=== PATIENT | male | born 1980 | race Caucasian/White ===

== ENCOUNTER 2016-12-23 17:17 | Emergency (ER) | payer MEDICAID ==
[2016-12-23] MEDS ORDERED: Sodium Chloride 0.9% 10 ML Syringe FLUSH PRN (17:52)
[2016-12-23] MEDS ORDERED: Sodium Chloride 0.9% 1,000 ML IV ONE ×2 (17:55→18:41)
[2016-12-23] MEDS ORDERED: Ondansetron 8 MG in Sodium Chloride 0.9% 50 ML IV ONE (17:56)
[2016-12-23] MEDS ORDERED: Ketorolac 30 MG/ML SDV IVPUSH ONE (17:56)
[2016-12-23] MEDS ORDERED: Morphine 4 MG/ML Syringe IVPUSH ONE (18:20)
[2016-12-23] MEDS ORDERED: Acetaminophen 325 MG Tab PO ONE (19:41)
[2016-12-23] MEDS ORDERED: Ondansetron 4 MG/2 ML SDV IV ONE (19:41)
[2016-12-23] MEDS ORDERED: HYDROmorphone 1 MG/ML Syringe IVPUSH ONE (19:41)
[2016-12-23] MEDS ORDERED: Acetaminophen/HYDROcodone 325-10 MG Tab ONE (20:44)
[2016-12-23] MEDS ORDERED: Acetaminophen/HYDROcodone 325-10 MG Tab PO ONE (20:44)
[2016-12-23] MEDS ORDERED: Ondansetron 4 MG Tab.DIS ONE (20:44)
[2016-12-23] MEDS ORDERED: Ondansetron 4 MG Tab.DIS PO ONE (20:44)
[2016-12-23 21:00] VITALS: BP 127/78
--- NOTE | 2016-12-24 21:03 | ER ---
SUBJECTIVE: The patient is a 36-year-old male with known GERD, PUD, and stomach problems. He has had multiple EGDs, colonoscopies, evaluation by GI and follows his regular PCP on a regular basis, able to take his medicines and has been doing pretty well, but occasionally gets bouts and flare-ups where he has horrible nausea and vomiting, not able to keep anything down and has quite a bit of abdominal pain. He comes in to the emergency room today for the one of the same flare-ups. He denies any trauma. He is not sure if he is having just another flare or if he is having another acute issue besides this. He has a quite severe abdominal pain from upper to lower. He has had nonbloody nausea and vomiting. He feels dehydrated and weak and fatigued. He has been having the symptoms for about 2 days, he was hospitalized for the same thing a year ago. He has been taking his Protonix and Reglan. He denies syncope, near syncope, chest pain, or shortness of breath. Denies any recent assault or trauma. PAST MEDICAL HISTORY: Includes history of sinusitis, asthma, multiple bouts of gastritis, GERD, pancreatitis, history ulcers, he has had multiple colonoscopies, EGDs, and evaluation by GI. He was hospitalized because of gastric issues a year ago. Chronic back pain, anxiety, left ankle surgery, obesity, concussion, ADHD, and depression. CURRENT MEDICATIONS: Include: 1. Metoclopramide 10 mg p.o. t.i.d. p.r.n. 2. Elavil 10 mg p.o. at bedtime. 3. Flovent p.r.n. 4. Protonix 40 mg p.o. at bedtime. ALLERGIES: He is allergic to honey bees and sulfa antibiotics. Honey bees cause anaphylactic shock, and sulfa antibiotics cause blurred vision. SOCIAL HISTORY: He is here with his . He does use tobacco. He does use hashish and pot, he occasionally drinks alcohol. REVIEW OF SYSTEMS: Profound nausea, vomiting, abdominal pain, feels dehydrated. No headaches. No syncope. No chest pain or shortness of breath. No lower extremity pain. No melena or BRBPR. No diarrhea. No dysuria, but states he is not urinating very much. Please see HPI. OBJECTIVE: Vital Signs: Height is 1.73 meters, weight is 82 kg, his temperature is 37 degrees C, heart rate is 114, blood pressure is 134/92, respiratory rate 16, and oxygen is 100% on room air. General: It appears like he is probably normally in the usually good health, but he is very anxious at this point. Somewhat emotional HEENT: Normocephalic and atraumatic. He is walking back and forth to the bathroom. He is vomiting. He is anxious. He talks very rapidly. He has no respiratory distress. He wants treated immediately. He appears in obvious pain. Conjunctivae are clear. Oropharynx moist. No real dryness noted. Neck: Non-remarkable. Chest: Clear. Abdomen: Tender throughout with some guarding. No specific focal tenderness is more global. Back: Vague low back tenderness. No specific CVAT. Extremities: Non-remarkable. Skin: Mildly diaphoretic. LAB/STUDIES: White count was 10.5, hemoglobin and hematocrit were 19.4 and 54.7, likely showing his dehydration. Platelets were normal 342. PMNs showed elevation at 80.1. His urine was dark yellow and cloudy. He had 100 of protein, trace ketones, trace occult blood, negative nitrites, moderate bilirubin, negative leukocyte esterase, and many bacteria. His drug screen was positive for tricyclic antidepressants and positive for THC. His CMP showed normal electrolytes. His BUN and creatinine were elevated at 32 and 2.4, respectively. His glucose is 165. Calcium 10.3. Total bili was 1.3 and elevated. LFTs were all normal. Amylase was normal at 55. EMERGENCY ROOM COURSE: An IV was placed. He was given 2 L of IV fluids, he was given 30 mg of Toradol, 4 mg of morphine, and 4 mg of ondansetron initially and this was followed up for several other doses of ondansetron. He was later given a dose of hydromorphone. An abdominal pelvic CAT scan was performed, and it did not show any acute findings, no free air, no abscesses. All of this was discussed with the patient. He tolerated all his treatment very well, and by the end of his stay, he has felt markedly better improved and is ready to go home. ASSESSMENT: 1. Intractable nausea and vomiting, resolved with treatment. 2. Dehydration, resolved with rehydration. 3. Abdominal pain with history of same with acute gastric symptoms. CT at this time non-remarkable. 4. Acute renal failure secondary to dehydration. PLAN: Discharged to home with his in stable and improved condition. Rehydrated with 2 of fluid. He is given a prescription of Zofran as well as a prescription for hydrocodone. He is advised to stay with family to keep hydrated and progressively so and then slowly advance his diet to bland diet. Recommend see PCP early next week. Return sooner if any emergent issues and he finds he is not making progress or he declines. Both he and his verbalize understanding and agreement with this plan and will follow up as advised. [facility] /[id number]
== END 2016-12-23 21:04 | disposition home or self-care (01) ==
LOC: DL.ED 17:17
DX: N17.9 Acute kidney failure, unspecified (principal); E86.0 Dehydration; E66.9 Obesity, unspecified; K21.9 Gastro-esophageal reflux disease without esophagitis; F32.9 Major depressive disorder, single episode, unspecified; Z91.030 Bee allergy status; Z88.2 Allergy status to sulfonamides
CPT/HCPCS: 36415; 74176; 80053; 80305; 81001; 82150; 85025; 96361; 96365; 96375; 99284; A9270; J1170; J1885; J2270; J2405; J7030; J7050

== ENCOUNTER 2016-12-25 14:30 | Emergency (ER) | payer MEDICAID ==
[2016-12-25] MEDS ORDERED: Sodium Chloride 0.9% 1,000 ML IV ONE (17:46)
[2016-12-25] MEDS ORDERED: Sodium Chloride 0.9% 10 ML Syringe FLUSH PRN (17:46)
[2016-12-25] MEDS ORDERED: HYDROmorphone 1 MG/ML Syringe IVPUSH ONE ×2 (17:47→19:10)
[2016-12-25] MEDS ORDERED: Ondansetron 8 MG in Sodium Chloride 0.9% 50 ML IV ONE (17:47)
[2016-12-25 18:26] LABS: CHLORIDE,CL 99 mmol/L (101-111); SODIUM,NA 136 mmol/L (135-145)
[2016-12-25 19:30] VITALS: BP 111/72
--- NOTE | 2016-12-26 02:43 | ER ---
SUBJECTIVE: The patient is a 36-year-old male, who was just seen 2 days ago with abdominal pain, intractable nausea, vomiting, and some dehydration. The patient has a history of the same, it is frequent, and comes on without warning. There is no cause known. He apparently has been evaluated by GI, by his PCP. He has had upper and lower endoscopies, multiple labs and evaluations. At his visit 2 days ago, he had extensive workup with full labs, cultures, abdominal and pelvic contrasted CAT scan which did not show any acute findings, he received a 2 or 3 L of fluids, Zofran, pain meds, and he responded to this very well and was able to be discharged to home. He did very well for the first day, for that night when he is discharged and over the next day, but last night, in the middle of the night, and this morning he began to have the abdominal pain again, and the nausea and vomiting, which is nonbloody. No diarrhea. No dysuria. No hematuria. No melena or BRBPR. He did try taking the Zofran to keep from vomiting, but it did not work. He now comes in for evaluation. PAST MEDICAL HISTORY: Significant for sinusitis; asthma; gastritis; GERD; pancreatitis; history of ulcers; colonoscopies; EGDs; recurrent abdominal pain; dehydration; nausea, vomiting, intractable; back pain; left ankle surgery; concussion; ADHD; depression; chickenpox; and influenza. CURRENT MEDICATIONS: At home, include: 1. Reglan 10 mg p.o. t.i.d. p.r.n. 2. Elavil 10 mg p.o. at bedtime p.r.n. 3. Albuterol ProAir p.r.n. 4. Flovent inhaler p.r.n. 5. Protonix 40 mg p.o. at bedtime. ALLERGIES: He is allergic to honeybees and sulfa antibiotics which cause anaphylactic shock and blurred vision, respectively. SOCIAL HISTORY: He is . He is here with his two days ago, she is back again today. He does use tobacco in the form of cigarettes and has been doing so for 30 years, he does use coffee and soda and tea. He does use alcohol. He does use marijuana and hashish weekly. REVIEW OF SYSTEMS: No fevers. No chest pain. No shortness of breath. He does have abdominal pain, some low back pain. No dysuria. No hematuria. No bowel changes. He does have intractable nausea and vomiting. No ENT issues. No neck pain or stiffness. Denies falls or trauma. No headache or syncope. OBJECTIVE: Vital Signs: He is afebrile. Heart rate 69, blood pressure is 143/72, respiratory rate 18, and oxygen 100% on room air. General: Very talkative, interactive, appears much better than when seen 2 days ago. He appears fairly well hydrated when we come and looked at his mucous membranes. HEENT: Conjunctivae are clear. Chest: Clear. CV: RRR. Abdominal: Some nonspecific diffuse [id number] tenderness to exam, much better than it was 2 days ago. Back: No CVAT. Extremities: Unremarkable. Skin: Clear. LAB/STUDIES: White count is normal as is hemoglobin, hematocrit, as his platelet, as his differential. CMP is also quite unremarkable. Total bili is 1.5, otherwise, LFTs and remainder exam were not remarkable. An abdominopelvic CAT scan was not performed at this time as it was only done 2 days ago. He appears much better today and the results of 2 days ago were not remarkable. The patient agrees with this as he feels he caught much earlier and his pain is much less severe, and he has not noticed any other changes. EMERGENCY ROOM COURSE: A line was started. He was given a liter of IV fluids. He was given 8 mg Zofran. He was given Dilaudid for some pain. He tolerated this very well. He was improved, felt back to normal and ready to go home with his . ASSESSMENT: 1. Intractable nausea, vomiting, nonbloody, with history of same, resolved with treatment. 2. Volume depletion, IV fluids given. 3. Abdominal pain, resolved. PLAN: Continue with meds, antiemetics, stay with family, aggressive hydration, go from clear fluids to mixed fluids to very bland diet as tolerated. Recommend to see PCP next week for recheck. Return for emergent issues. [facility] /[id number]
== END 2016-12-25 19:30 | disposition home or self-care (01) ==
LOC: DL.ED 14:30
DX: E86.9 Volume depletion, unspecified (principal); R10.9 Unspecified abdominal pain; K21.9 Gastro-esophageal reflux disease without esophagitis; J45.909 Unspecified asthma, uncomplicated; F32.9 Major depressive disorder, single episode, unspecified; F17.210 Nicotine dependence, cigarettes, uncomplicated; Z91.030 Bee allergy status; Z88.2 Allergy status to sulfonamides
CPT/HCPCS: 36415; 80053; 82150; 85025; 96361; 96374; 96375; 96376; 99284; J1170; J2405; J7030; J7050

== ENCOUNTER 2017-01-30 08:31 | Emergency (ER) | payer MEDICAID ==
[2017-01-30] MEDS ORDERED: Lactated Ringers 1,000 ML IV ONE (08:51)
[2017-01-30] MEDS ORDERED: Ondansetron 4 MG/2 ML SDV IV ONE ×2 (08:51→10:33)
--- NOTE | 2017-01-30 08:57 | EDM.PDOC ---
ED HPI GI/ABDOMINAL - General Chief Complaint: Gastrointestinal Problem Stated Complaint: [id number] CANT STOP PUKING Time Seen by Provider: 01/30/17 08:51 Source of Information: Reports: Patient History Limitations: Reports: No limitations - History of Present Illness INITIAL COMMENTS - FREE TEXT/NARRATIVE: patient complains of nausea and vomiting that began yesterday. Patient has multiple emesis. No blood. No complaints of diarrhea. No recent fever or chills. Past medical history consistent for H. pylori and pancreatitis Patient has not had endoscopy. Last episode of similar symptoms was last month. Patient has been on Chantix for the past 3 weeks. He no longer consumes alcohol. Timing/Duration: Reports: Day(s): Location: generalized Quality: Reports: ache Severity: moderate Associated Symptoms: Reports: loss of appetite, malaise, nausea/vomiting - Related Data Allergies/ADRs: Allergies Allergy/AdvReac Type Severity Reaction Status Date / Time venom-honey bee Allergy Severe Anaphylactic Verified 01/30/17 08:43 [bee venom (honey bee)] Shock Sulfa (Sulfonamide Allergy Intermediate Blurred Verified 01/30/17 08:43 Antibiotics) Vision Home Meds: Home Meds Metoclopramide HCl [Reglan] 10 mg PO TIDAC PRN #30 tablet 03/11/16 [Rx] Amitriptyline [Elavil] 10 mg PO BEDTIME PRN 07/06/16 [History] Albuterol [Proair HFA] 2 inh INH BID 12/23/16 [History] Fluticasone Propionate [Flovent HFA 44 MCG] 2 inh INH BID 12/23/16 [History] Pantoprazole [Protonix] 40 mg PO BEDTIME 12/23/16 [History] Past Medical History - Past Health History Medical/Surgical History: Denies Medical/Surgical History HEENT History: Reports: Sinusitis Cardiovascular History: Reports: None Respiratory History: Reports: Asthma Gastrointestinal History: Reports: Gastritis, GERD, Pancreatitis, Other (see below) Other Gastrointestinal History: Hx of ulcers. Genitourinary History: Reports: None Musculoskeletal History: Reports: Back pain, chronic Neurological History: Reports: Concussion Psychiatric History: Reports: ADHD, Depression Endocrine/Metabolic History: Reports: Obesity/BMI 30+ Hematologic History: Reports: None Immunologic History: Reports: None Oncologic (Cancer) History: Reports: None Dermatologic History: Reports: Other (see below) Other Dermatologic History: ECCHYMOSIS TO L) FT - Infectious Disease History Infectious Disease History: Reports: Chicken pox, Influenza - Past Surgical History Head Surgeries/Procedures: Reports: None HEENT Surgical History: Reports: None Cardiovascular Surgical History: Reports: None Respiratory Surgical History: Reports: None GI Surgical History: Reports: Colonoscopy, EGD Neurological Surgical History: Reports: None Musculoskeletal Surgical History: Reports: Other (see below) Other Musculoskeletal Surgeries/Procedures:: Left ankle surgery. Social & Family History - Family History Family Medical History: Noncontributory - Tobacco Use Smoking Status *Q: Current Every Day Smoker Years of Tobacco use: 30 Packs/Tins Daily: 1 Used Tobacco, but Quit: No Month Tobacco Last Used: DECEMBER Second Hand Smoke Exposure: Yes - Caffeine Use Caffeine Use: Reports: Coffee, Soda, Tea - Alcohol Use Days Per Week of Alcohol Use: 2 Number of Drinks Per Day: 5 Total Drinks Per Week: 10 - Recreational Drug Use Recreational Drug Use: Yes Drug Use in Last 12 Months: Yes Recreational Drug Type: Reports: Marijuana/Hashish Recreational Drug Use Frequency: Weekly Recreational Drug Last Use: t-2 ED ROS GENERAL - Review of Systems Review Of Systems: See Below Constitutional: Reports: malaise, decreased appetite HEENT: Reports: No symptoms Respiratory: Reports: Cough Cardiovascular: Reports: No symptoms Endocrine: Reports: no symptoms GI/Abdominal: Reports: Abdominal pain, Decreased appetite, Nausea, Vomiting : Reports: no symptoms Musculoskeletal: Reports: no symptoms Skin: Reports: no symptoms Neurological: Reports: No Symptoms Psychiatric: Reports: No symptoms ED EXAM, GI/ABD - Physical Exam Exam: See Below Exam Limited By: No limitations General Appearance: alert, mild distress Eyes: bilateral: EOMI Nose: normal inspection Throat/Mouth: Normal oropharynx, Other (dry mucus membranes) Course - Vital Signs Last Recorded V/S: Last Vital Signs Temp 96.7 F 01/30/17 09:00 Pulse 90 01/30/17 12:12 Resp 16 01/30/17 12:12 BP 107/62 01/30/17 12:12 Pulse Ox 91 L 01/30/17 12:12 - Orders/Labs/Meds Orders: Active Orders 24 hr Category Date Time Status Sodium Chloride 0.9% [Normal Saline] 1,000 ml Med 01/30/17 10:05 Active IV ASDIRECTED Sodium Chloride 0.9% [Normal Saline] 1,000 ml Med 01/30/17 11:15 Active IV ASDIRECTED Medication Orders Sodium Chloride (Normal Saline) 1,000 mls @ 999 mls/hr IV ASDIRECTED TEJINDER Last Admin: 01/30/17 10:05 Dose: 999 mls/hr Sodium Chloride (Normal Saline) 1,000 mls @ 1,000 mls/hr IV ASDIRECTED TEJINDER Last Admin: 01/30/17 11:15 Dose: 1,000 mls/hr Labs: Laboratory Tests 01/30/17 01/30/17 01/30/17 Range/Units 08:55 08:55 11:25 WBC 9.1 (5.0-10.0) 10^3/uL RBC 5.03 (4.6-6.2) 10^6/uL Hgb 16.1 (14.0-18.0) g/dL Hct 45.7 (40.0-54.0) % MCV 90.9 (80-100) fL MCH 32.0 (27.0-34.0) pg MCHC 35.2 H (33.0-35.0) g/dL Plt Count 376 (150-450) 10^3/uL Neut % (Auto) 74.1 (42.2-75.2) % Lymph % (Auto) 19.2 L (20.5-50.1) % [place] % (Auto) 6.6 (2-8) % Eos % (Auto) 0.0 L (1.0-3.0) % Baso % (Auto) 0.1 (0.0-1.0) % Sodium 136 (135-145) mmol/L Potassium 3.8 (3.6-5.0) mmol/L Chloride 101 (101-111) mmol/L Carbon Dioxide 23.0 (21.0-31.0) mmol/L Anion Gap 15.8 BUN 18 (7-18) mg/dL Creatinine 1.0 (0.6-1.3) mg/dL Est Cr Clr Drug Dosing TNP Estimated GFR (MDRD) > 60 BUN/Creatinine Ratio 18.00 Glucose 141 H (74-105) mg/dL Calcium 9.9 (8.4-10.2) mg/dl Total Bilirubin 0.8 (0.2-1.0) mg/dL AST 19 (10-42) IU/L ALT 12 (10-60) IU/L Alkaline Phosphatase 61 (42-121) IU/L Total Protein 8.4 H (6.7-8.2) g/dl Albumin 4.6 (3.2-5.5) g/dl Globulin 3.8 Albumin/Globulin Ratio 1.21 Amylase 47 (28-100) U/L Urine Color Yellow (YELLOW) Urine Appearance Slightly cloudy (CLEAR) Urine pH 5.5 (5.0-9.0) Ur Specific [place] >= 1.030 (1.005-1.030) Urine Protein 30 H (NEGATIVE) Urine Glucose (UA) Negative (NEGATIVE) Urine Ketones 40 H (NEGATIVE) Urine Occult Blood Negative (NEGATIVE) Urine Nitrite Negative (NEGATIVE) Urine Bilirubin Small H (NEGATIVE) Urine Urobilinogen 0.2 (0.2-1.0) mg/dL Ur Leukocyte Esterase Negative (NEGATIVE) Urine RBC 0-5 /HPF Urine WBC 0-5 (0-5/HPF) /HPF Ur Epithelial Cells Rare /HPF Urine Bacteria Rare (0-FEW/HPF) /HPF Urine Mucus Many H /LPF Meds: Medications Generic Name Dose Route Start Last Admin Trade Name Freq PRN Reason Stop Dose Admin Sodium Chloride 1,000 mls @ 999 mls/hr 01/30/17 10:05 01/30/17 10:05 Normal Saline IV 999 mls/hr ASDIRECTED TEJINDER Administration Sodium Chloride 1,000 mls @ 1,000 mls/hr 01/30/17 11:15 01/30/17 11:15 Normal Saline IV 1,000 mls/hr ASDIRECTED TEJINDER Administration Discontinued Medications Generic Name Dose Route Start Last Admin Trade Name Freq PRN Reason Stop Dose Admin Al Hydroxide/Mg Hydroxide 30 ml 01/30/17 11:22 01/30/17 12:07 Gi Cocktail PO 01/30/17 11:23 30 ml ONETIME ONE Administration Hydromorphone HCl 0.5 mg 01/30/17 08:58 01/30/17 09:05 Dilaudid IVPUSH 01/30/17 08:59 0.5 mg ONETIME ONE Administration Hydromorphone HCl 1 mg 01/30/17 11:22 01/30/17 12:05 Dilaudid IVPUSH 01/30/17 11:23 1 mg ONETIME ONE Administration Lactated Ringer's 1,000 mls @ 1,000 mls/hr 01/30/17 08:51 01/30/17 09:01 Ringers, Lactated IV 01/30/17 09:50 1,000 mls/hr .BOLUS ONE Administration Ondansetron HCl 4 mg 01/30/17 08:51 01/30/17 08:59 Zofran IV 01/30/17 08:52 4 mg ONETIME ONE Administration Ondansetron HCl 4 mg 01/30/17 10:33 01/30/17 10:38 Zofran IV 01/30/17 10:34 4 mg ONETIME ONE Administration Departure - Departure Time of Disposition: 12:18 Disposition: Home, Self-Care 01 Condition: good Clinical Impression: History of Helicobacter pylori infection Vomiting Qualifiers: Vomiting type: unspecified Vomiting Intractability: non-intractable Nausea presence: with nausea Qualified Code(s): R11.2 - Nausea with vomiting, unspecified GERD (gastroesophageal reflux disease) Qualifiers: Esophagitis presence: esophagitis presence not specified Qualified Code(s): K21.9 - Gastro-esophageal reflux disease without esophagitis Forms: ED Department Discharge, Return to Work/School Form Additional Instructions: take medications as instructed. Follow up with regular provider in one to 2 weeks. Obtain referral to deck worker to follow through with upper endoscopy. Advance diet as tolerated. Drink various types of fluids to stay hydrated. Call or return to the ER if any problems questions or concerns - My Orders Last 24 Hours: My Active Orders 01/30/17 10:05 Sodium Chloride 0.9% [Normal Saline] 1,000 ml IV ASDIRECTED 01/30/17 11:15 Sodium Chloride 0.9% [Normal Saline] 1,000 ml IV ASDIRECTED - Assessment/Plan Last 24 Hours: My Active Orders 01/30/17 10:05 Sodium Chloride 0.9% [Normal Saline] 1,000 ml IV ASDIRECTED 01/30/17 11:15 Sodium Chloride 0.9% [Normal Saline] 1,000 ml IV ASDIRECTED
[2017-01-30] MEDS ORDERED: HYDROmorphone 1 MG/ML Syringe IVPUSH ONE ×2 (08:58→11:22)
[2017-01-30 09:21] LABS: CHLORIDE,CL 101 mmol/L (101-111); SODIUM,NA 136 mmol/L (135-145)
[2017-01-30] MEDS ORDERED: Sodium Chloride 0.9% 1,000 ML IV SCH ×2 (10:05→11:15)
[2017-01-30] MEDS ORDERED: GI Cocktail Oral Solution 30 ML PO ONE (11:22)
[2017-01-30 12:14] VITALS: BP 107/62
[2017-01-30] MEDS ORDERED: GI Cocktail Oral Solution 30 ML ONE (12:32)
== END 2017-01-30 13:02 | disposition home or self-care (01) ==
LOC: DL.ED 08:31
DX: K21.9 Gastro-esophageal reflux disease without esophagitis (principal); J45.909 Unspecified asthma, uncomplicated; F32.9 Major depressive disorder, single episode, unspecified; E66.9 Obesity, unspecified; F17.210 Nicotine dependence, cigarettes, uncomplicated; Z88.2 Allergy status to sulfonamides; Z91.030 Bee allergy status; Z79.899 Other long term (current) drug therapy
CPT/HCPCS: 36415; 80053; 81001; 82150; 85025; 96361; 96374; 96375; 99283; A9270; J1170; J2405; J7030; J7120

== ENCOUNTER 2017-04-20 08:52 | Day surgery (SDC) | payer MEDICAID ==
[~2017-04-20 08:52] MED LIST: Glycopyrrolate 0.2 MG/ML 2 ML SDV ONE; Ketorolac 30 MG/ML SDV ONE; Lactated Ringers 1,000 ML IV SCH; Lidocaine 2% 20 ML MDV ONE; Midazolam 1 MG/ML 2 ML SDV ONE; Ondansetron 4 MG/2 ML SDV ONE; Sodium Chloride 0.9% 10 ML Syringe FLUSH PRN; ceFAZolin 1 GM in Premix Bag 1 BAG IV ONE; fentaNYL 100 MCG/2 ML SDV ONE
[2017-04-20] MEDS ORDERED: Midazolam 1 MG/ML 2 ML SDV IV ONE (10:12)
[2017-04-20] MEDS ORDERED: Ondansetron 4 MG/2 ML SDV IV ONE (10:12)
[2017-04-20] MEDS ORDERED: Ketorolac 30 MG/ML SDV IVPUSH ONE (10:12)
[2017-04-20] MEDS ORDERED: Propofol 200 MG/20 ML SDV IV ONE (10:12)
[2017-04-20] MEDS ORDERED: HYDROmorphone 1 MG/ML Syringe IV ONE ×2 (10:12→15:17)
[2017-04-20] MEDS ORDERED: Lidocaine 2% 20 ML MDV INJECT ONE (10:12)
[2017-04-20] MEDS ORDERED: Lidocaine 1% 30 ML SDV INJECT ONE ×3 (10:16→12:07)
[2017-04-20] MEDS ORDERED: Bupivacaine 0.5% 10 ML SDV INJECT ONE ×3 (10:16→12:07)
[2017-04-20] MEDS ORDERED: Bupivacaine 0.5% 10 ML SDV ONE (10:19)
[2017-04-20] MEDS ORDERED: Lidocaine 1% 30 ML SDV ONE (10:20)
[2017-04-20] MEDS ORDERED: Propofol 200 MG/20 ML SDV ONE (10:46)
[2017-04-20] MEDS ORDERED: HYDROmorphone 1 MG/ML Syringe ONE ×2 (12:16→12:34)
[2017-04-20] MEDS ORDERED: Acetaminophen/oxyCODONE 325-5 MG Tab PO PRN (12:37)
--- NOTE | 2017-04-20 12:40 | PCM.OPNOTE ---
- General Post-Op/Procedure Note Date of Surgery/Procedure: 04/20/17 Operative Procedure(s): Left ankle hardware removal with peroneal tendon exploration Pre Op Diagnosis: left ankle pain and peroneal tendon pain Post-Op Diagnosis: robin Anesthesia Technique: General LMA, Local Primary Surgeon: Georgiana Monzon Anesthesia Provider: Joss Yepez EBL in mLs: 5 Complications: none Condition: Good Free Text/Narrative:: Intake & Output 04/19/17 04/20/17 04/20/17 22:59 06:59 14:59 Intake Total 50 Balance 50 Pt tolerated procedure well and was transported to recovery with vascular status intact to left ankle, well padded compression dressing applied with cam boot. Synthese hardware removed, tendons without defects/tears.
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
== END 2017-04-20 14:15 | disposition home or self-care (01) ==
LOC: DL.SDS 08:52 → MERGE 08:52 → DL.SDS 14:15
PROVIDERS: ATTEND Podiatrist
DX: M76.72 Peroneal tendinitis, left leg (principal); T84.84XA Pain due to internal orthopedic prosthetic devices, implants and grafts, initial encounter; J45.909 Unspecified asthma, uncomplicated; Z98.890 Other specified postprocedural states; Z79.899 Other long term (current) drug therapy; Z88.2 Allergy status to sulfonamides; F17.210 Nicotine dependence, cigarettes, uncomplicated
CPT/HCPCS: 20680; 28200; 80305; J0690; J1170; J1885; J2250; J2405; J2704; J7120

== ENCOUNTER 2017-06-17 09:33 | Emergency (ER) | payer MEDICAID ==
--- NOTE | 2017-06-17 09:39 | EDM.PDOC ---
ED HPI GENERAL MEDICAL PROBLEM - General Chief Complaint: Back Pain or Injury Stated Complaint: BACK PAIN Time Seen by Provider: 06/17/17 09:38 Source of Information: Reports: Patient History Limitations: Reports: No Limitations - History of Present Illness INITIAL COMMENTS - FREE TEXT/NARRATIVE: Patient presents to the ER with c/o right low back pain with sharp radiation down the right leg. He states he fell approximately 6 feet off a ladder landing on his backside. This occurred yesterday. He states he had incontinence of urine during the night while sleeping. He continues to have low back (right) pain, rating the pain 10/10. He states he has had thoracic back injuries in the past. He denies hitting his head or losing consciousness. Onset: Sudden Onset Date: 06/16/17 Location: Reports: Back, Lower Extremity, Right Quality: Reports: Sharp, Stabbing Severity: Severe Improves with: Reports: None Worsens with: Reports: None Associated Symptoms: Reports: Other (urinary incontinence) Middle Back Pain Score (Numeric/FACES): 8 - Related Data Allergies Allergy/AdvReac Type Severity Reaction Status Date / Time venom-honey bee Allergy Severe Anaphylactic Verified 06/17/17 09:45 [bee venom (honey bee)] Shock Sulfa (Sulfonamide Allergy Intermediate Blurred Verified 06/17/17 09:45 Antibiotics) [facility] Home Meds: Home Meds Metoclopramide HCl [Reglan] 10 mg PO TIDAC PRN #30 tablet 03/11/16 [Rx] Amitriptyline [Elavil] 10 mg PO BEDTIME PRN 07/06/16 [History] Pantoprazole [Protonix] 40 mg PO BEDTIME 12/23/16 [History] Albuterol Sulfate 1 vial INH ASDIRECTED PRN 04/19/17 [History] Albuterol [Proair HFA] 1 - 2 puff INH Q4HR PRN 04/19/17 [History] Past Medical History - Past Health History Medical/Surgical History: Denies Medical/Surgical History HEENT History: Reports: Sinusitis Cardiovascular History: Reports: None Respiratory History: Reports: Asthma Gastrointestinal History: Reports: Gastritis, GERD, Pancreatitis, Other (See Below) Other Gastrointestinal History: Hx of ulcers. Genitourinary History: Reports: Acute Renal Failure Musculoskeletal History: Reports: Back Pain, Chronic Neurological History: Reports: Concussion Psychiatric History: Reports: ADHD, Depression Endocrine/Metabolic History: Reports: Obesity/BMI 30+ Hematologic History: Reports: None Immunologic History: Reports: None Oncologic (Cancer) History: Reports: None Dermatologic History: Reports: Other (See Below) Other Dermatologic History: ECCHYMOSIS TO L) FT - Infectious Disease History Infectious Disease History: Reports: Chicken Pox, Influenza - Past Surgical History Head Surgeries/Procedures: Reports: None HEENT Surgical History: Reports: None Cardiovascular Surgical History: Reports: None Respiratory Surgical History: Reports: None GI Surgical History: Reports: Colonoscopy, EGD Male Surgical History: Reports: None Neurological Surgical History: Reports: None Musculoskeletal Surgical History: Reports: Other (See Below) Other Musculoskeletal Surgeries/Procedures:: Left ankle surgery. Social & Family History - Family History Family Medical History: Noncontributory - Tobacco Use Smoking Status *Q: Current Every Day Smoker Years of Tobacco use: 30 Packs/Tins Daily: 1 Used Tobacco, but Quit: No Month Tobacco Last Used: DECEMBER Second Hand Smoke Exposure: Yes - Caffeine Use Caffeine Use: Reports: Coffee, Soda, Tea - Alcohol Use Days Per Week of Alcohol Use: 2 Number of Drinks Per Day: 5 Total Drinks Per Week: 10 - Recreational Drug Use Recreational Drug Use: Yes Drug Use in Last 12 Months: Yes Recreational Drug Type: Reports: Marijuana/Hashish Recreational Drug Use Frequency: Weekly Recreational Drug Last Use: T-1 ED ROS GENERAL - Review of Systems Review Of Systems: ROS reveals no pertinent complaints other than HPI. ED EXAM,LOWER BACK PAIN/INJURY - Physical Exam Exam: See Below Exam Limited By: No Limitations General Appearance: Alert, WD/WN, Mild Distress Head: Atraumatic, Normocephalic Neck: Normal Inspection, Supple, Non-Tender, Full Range of Motion Respiratory/Chest: No Respiratory Distress, Lungs Clear, Normal Breath Sounds, No Accessory Muscle Use, Chest Non-Tender Cardiovascular: Normal Peripheral Pulses, Regular Rate, Rhythm, No Edema, No Gallop, No JVD, No Murmur, No Rub GI/Abdominal: Normal Bowel Sounds, Soft, Non-Tender, No Distention (Male) Exam: Other (urinary incontinence while sleeping) Rectal (Males) Exam: Deferred Back Exam: Normal Inspection, Decreased Range of Motion, Muscle Spasm, Paraspinal Tenderness, Vertebral Tenderness Extremities: Normal Inspection, Normal Range of Motion, Non-Tender, No Pedal Edema, Normal Capillary Refill Neurological: Alert, Normal Mood/Affect, Normal Dorsiflexion, Normal Plantar Flexion, Normal Gait, No Motor/Sensory Deficits, Oriented x 3 Psychiatric: Normal Affect, Normal Mood Skin Exam: Warm, Dry, Intact, Normal Color, No Rash Lymphatic: No Adenopathy Course - Vital Signs Last Recorded V/S: Last Vital Signs Temp 98.2 F 06/17/17 09:38 Pulse 85 06/17/17 09:38 Resp 18 06/17/17 09:38 BP 127/56 L 06/17/17 09:38 Pulse Ox 99 06/17/17 09:38 - Orders/Labs/Meds Orders: Active Orders 24 hr Category Date Time Status DRUG SCREEN URINE BIORAD [URCHEM] Stat Lab 06/17/17 09:51 Uncollected UA W/MICROSCOPIC [URIN] Stat Lab 06/17/17 09:51 Uncollected Meds: Medications Discontinued Medications Generic Name Dose Route Start Last Admin Trade Name Yairq PRN Reason Stop Dose Admin Methylprednisolone Sodium Succinate 125 mg 06/17/17 10:27 06/17/17 10:33 Solu-Medrol IM 06/17/17 10:28 125 mg ONETIME ONE Administration Oxycodone/Acetaminophen 1 tab 06/17/17 10:22 06/17/17 10:34 Percocet 325-5 Mg PO 06/17/17 10:23 1 tab ONETIME ONE Administration - Radiology Interpretation Free Text/Narrative:: Lumbar CT: No acute findings See Rad report CT Results Date: 06/17/17 Departure - Departure Time of Disposition: 10:24 Disposition: Home, Self-Care 01 Condition: Fair Clinical Impression: Lumbar radiculopathy, acute - Discharge Information Instructions: Back Pain, Adult, [id number], Lumbosacral Radiculopathy Forms: ED Department Discharge Additional Instructions: [place] 1-2 tabs every 4-6 hours as needed for pain Medrol Dose pack. Follow instructions on the dose pack for daily doses. Take until gone. Cyclobenzaprine 10mg orally every 8 hours as needed for muscle spasms. Follow up in the clinic in 3-4 days. If no improvement a MRI is recommended. - My Orders Last 24 Hours: My Active Orders 06/17/17 09:51 DRUG SCREEN URINE BIORAD [URCHEM] Stat UA W/MICROSCOPIC [URIN] Stat - Assessment/Plan Last 24 Hours: My Active Orders 06/17/17 09:51 DRUG SCREEN URINE BIORAD [URCHEM] Stat UA W/MICROSCOPIC [URIN] Stat
[2017-06-17] MEDS ORDERED: methylPREDNISolone Sodium Succinate 125 MG/2 ML SDV IVPUSH ONE (10:22)
[2017-06-17] MEDS ORDERED: Acetaminophen/oxyCODONE 325-5 MG Tab PO ONE (10:22)
[2017-06-17] MEDS ORDERED: methylPREDNISolone Sodium Succinate 125 MG/2 ML SDV IM ONE (10:27)
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
== END 2017-06-17 10:50 | disposition home or self-care (01) ==
LOC: DL.ED 09:33 → MERGE 09:33 → DL.ED 10:50
DX: M54.16 Radiculopathy, lumbar region (principal); J45.909 Unspecified asthma, uncomplicated; K21.9 Gastro-esophageal reflux disease without esophagitis; F32.9 Major depressive disorder, single episode, unspecified; E66.9 Obesity, unspecified; Z98.890 Other specified postprocedural states; F17.210 Nicotine dependence, cigarettes, uncomplicated; Z68.27 Body mass index [BMI] 27.0-27.9, adult; Z88.2 Allergy status to sulfonamides; Z91.030 Bee allergy status
CPT/HCPCS: 72131; 96372; 99284; A9270; J2930

== ENCOUNTER 2018-07-01 21:18 | Emergency (ER) | payer SELFPAY ==
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
[2018-07-01] MEDS ORDERED: Acetaminophen/HYDROcodone 325-10 MG Tab PO ONE (22:03)
[2018-07-01] MEDS ORDERED: methylPREDNISolone Sodium Succinate 125 MG/2 ML SDV IM ONE (22:03)
[2018-07-01] MEDS ORDERED: Cyclobenzaprine 10 MG Tab PO ONE (23:29)
== END 2018-07-01 23:40 | disposition home or self-care (01) ==
LOC: DL.ED 21:18
DX: S00.03XA Contusion of scalp, initial encounter (principal); M54.41 Lumbago with sciatica, right side; I10 Essential (primary) hypertension; F17.210 Nicotine dependence, cigarettes, uncomplicated; E66.9 Obesity, unspecified; Z88.2 Allergy status to sulfonamides; Z91.030 Bee allergy status; X58.XXXA Exposure to other specified factors, initial encounter
CPT/HCPCS: 70450; 72100; 72125; 96372; 99284; A9270; J2930; 99283

== ENCOUNTER 2020-02-04 14:48 | Emergency (ER) | payer MEDICAID, OTHER ==
[2020-02-04] MEDS ORDERED: Metoclopramide 10 MG/2 ML SDV IVPUSH ONE (15:09)
[2020-02-04] MEDS ORDERED: Lactated Ringers 1,000 ML IV ONE (15:09)
--- NOTE | 2020-02-04 15:20 | EDM.PDOC ---
ED HPI GENERAL MEDICAL PROBLEM - General Chief Complaint: Gastrointestinal Problem Stated Complaint: throwing up/cant keep anything down Time Seen by Provider: 02/04/20 15:05 Source of Information: Reports: Patient History Limitations: Reports: No Limitations - History of Present Illness INITIAL COMMENTS - FREE TEXT/NARRATIVE: This 39 yo male patient reports to the ED with left upper quadrant abdominal pain, nausea and vomiting. The patient reports he started to feel ill yesterday afternoon, but this morning the nausea, vomiting and abdominal pain started. The patient reports he has had similar symptoms in the past that resolved after getting a couple of medications in the ED. The patient reports he has not seen his primary care provider for a while. The patient reports he has had several scopes, but nothing abnormal has been found. The patient reports he is feeling very anxious and requested something to help him relax. The patient also reports he noticed some blood in his stool today. The patient reports he has had similar episodes in the past. The patient has not been taking Protonix as previously prescribed. The patient does admit to smoking marijuana last week. Onset Date: 02/03/20 Duration: Constant, Getting Worse Location: Reports: Abdomen Quality: Reports: Other Severity: Moderate Improves with: Reports: None Worsens with: Reports: None Context: Reports: Other Associated Symptoms: Reports: Nausea/Vomiting - Related Data Allergies Allergy/AdvReac Type Severity Reaction Status Date / Time venom-honey bee Allergy Severe Anaphylactic Verified 02/04/20 14:56 [bee venom (honey bee)] Shock Sulfa (Sulfonamide Allergy Intermediate Blurred Verified 02/04/20 14:56 Antibiotics) Vision Home Meds: Home Meds Pantoprazole [Protonix] 40 mg PO BEDTIME 12/23/16 [History] Albuterol [Proair HFA] 1 - 2 puff INH Q4HR PRN 04/19/17 [History] Past Medical History - Past Health History Medical/Surgical History: Denies Medical/Surgical History HEENT History: Reports: Sinusitis Cardiovascular History: Reports: Hypertension Respiratory History: Reports: Asthma Gastrointestinal History: Reports: Gastritis, GERD, Other (See Below), Pancreatitis Other Gastrointestinal History: Hx of ulcers. Genitourinary History: Reports: Acute Renal Failure Musculoskeletal History: Reports: Back Pain, Chronic Neurological History: Reports: Concussion Psychiatric History: Reports: ADHD, Depression Endocrine/Metabolic History: Reports: Obesity/BMI 30+ Hematologic History: Reports: None Immunologic History: Reports: None Oncologic (Cancer) History: Reports: None Dermatologic History: Reports: Other (See Below) Other Dermatologic History: ECCHYMOSIS TO L) FT - Infectious Disease History Infectious Disease History: Reports: Chicken Pox, Influenza - Past Surgical History Head Surgeries/Procedures: Reports: None HEENT Surgical History: Reports: None Cardiovascular Surgical History: Reports: None Respiratory Surgical History: Reports: None Male Surgical History: Reports: None Neurological Surgical History: Reports: None Musculoskeletal Surgical History: Reports: Other (See Below) Other Musculoskeletal Surgeries/Procedures:: Left ankle surgery. Social & Family History - Family History Family Medical History: Noncontributory - Caffeine Use Caffeine Use: Reports: Coffee, Soda, Tea ED ROS GENERAL - Review of Systems Review Of Systems: Comprehensive ROS is negative, except as noted in HPI. ED EXAM, GI/ABD - Physical Exam Exam: See Below Exam Limited By: No Limitations General Appearance: Alert, WD/WN, Moderate Distress Eyes: Bilateral: Normal Appearance, EOMI Ears: Normal External Exam, Normal Canal, Hearing Grossly Normal, Normal TMs Nose: Normal Inspection, Normal Mucosa, No Blood Throat/Mouth: Normal Inspection, Normal Lips, Normal Teeth, Normal Gums, Normal Oropharynx, Normal Voice, No Airway Compromise Head: Atraumatic, Normocephalic Neck: Normal Inspection, Supple, Non-Tender, Full Range of Motion Respiratory/Chest: No Respiratory Distress, Lungs Clear, Normal Breath Sounds, No Accessory Muscle Use, Chest Non-Tender Cardiovascular: Normal Peripheral Pulses, Regular Rate, Rhythm, No Edema, No Gallop, No JVD, No Murmur, No Rub GI/Abdominal Exam: Normal Bowel Sounds, No Organomegaly, No Distention, No Abnormal Bruit, No Mass, Pelvis Stable, Tender (left upper quadrant (tender to palpation) no mass) (Male) Exam: Deferred Rectal (Males) Exam: Normal Exam, Normal Rectal Tone Back Exam: Normal Inspection, Full Range of Motion, NT Extremities: Normal Inspection, Normal Range of Motion, Non-Tender, Normal Capillary Refill, No Pedal Edema Neurological: Alert, Oriented, CN II-XII Intact, Normal Cognition, Normal Reflexes Psychiatric: Anxious Skin Exam: Warm, Dry, Intact, Normal Color, No Rash Lymphatic: No Adenopathy Course - Vital Signs Last Recorded V/S: Last Vital Signs Temp 35.9 C L 02/04/20 14:53 Pulse 74 02/04/20 14:53 Resp 16 02/04/20 14:53 BP 120/82 02/04/20 14:53 Pulse Ox 100 02/04/20 14:53 - Orders/Labs/Meds Orders: Active Orders 24 hr Category Date Time Status CULTURE BLOOD [BC] Stat Lab 02/04/20 15:45 Ordered LACTIC ACID [CHEM] Stat Lab 02/04/20 15:45 Ordered Labs: Laboratory Tests 02/04/20 02/04/20 02/04/20 Range/Units 15:16 15:16 15:18 WBC (5.0-10.0) 10^3/uL RBC (4.6-6.2) 10^6/uL Hgb (14.0-18.0) g/dL Hct (40.0-54.0) % MCV (80-100) fL MCH (27.0-34.0) pg MCHC (33.0-35.0) g/dL Plt Count (150-450) 10^3/uL Neut % (Auto) (42.2-75.2) % Lymph % (Auto) (20.5-50.1) % [place] % (Auto) (2-8) % Eos % (Auto) (1.0-3.0) % Baso % (Auto) (0.0-1.0) % Sodium (136-145) mmol/L Potassium (3.5-5.1) mmol/L Chloride (98-107) mmol/L Carbon Dioxide (21-32) mmol/L Anion Gap (7-13) mEq/L BUN (7-18) mg/dL Creatinine (0.70-1.30) mg/dL Est Cr Clr Drug Dosing mL/min Estimated GFR (MDRD) BUN/Creatinine Ratio (No establ ref range) Glucose (74-99) mg/dL Calcium (8.5-10.1) mg/dL Total Bilirubin (0.2-1.0) mg/dL AST (15-37) U/L ALT (16-63) U/L Alkaline Phosphatase (46-116) U/L Total Protein (6.4-8.2) g/dL Albumin (3.4-5.0) g/dL Globulin Albumin/Globulin Ratio Amylase 115 (25-115) U/L Lipase 181 (73-393) U/L Urine Color Yellow (YELLOW) Urine Appearance Slightly cloudy (CLEAR) Urine pH 5.5 (5.0-9.0) Ur Specific [place] >= 1.030 (1.005-1.030) Urine Protein 100 H (NEGATIVE) Urine Glucose (UA) Negative (NEGATIVE) Urine Ketones 15 H (NEGATIVE) Urine Occult Blood Trace-intact H (NEGATIVE) Urine Nitrite Negative (NEGATIVE) Urine Bilirubin Moderate H (NEGATIVE) Urine Urobilinogen 1.0 (0.2-1.0) mg/dL Ur Leukocyte Esterase Negative (NEGATIVE) Urine RBC 0-5 /HPF Urine WBC 0-5 (0-5/HPF) /HPF Ur Epithelial Cells Rare (NOT SEEN) /HPF Calcium Oxalate Crystal Moderate H (NOT SEEN) /HPF Amorphous Sediment Rare (NOT SEEN) /HPF Urine Bacteria Rare (0-FEW/HPF) /HPF Urine Mucus Many H (NOT SEEN) /LPF Urinalysis Comment See note Urine Opiates Screen Positive H (NEGATIVE) Ur Oxycodone Screen Negative (NEGATIVE) Urine Methadone Screen Negative (NEGATIVE) Ur Barbiturates Screen Negative (NEGATIVE) U Tricyclic Antidepress Negative (NEGATIVE) Ur Phencyclidine Scrn Negative (NEGATIVE) Ur Amphetamine Screen Negative (NEGATIVE) U Methamphetamines Scrn Negative (NEGATIVE) Urine MDMA Screen Negative (NEGATIVE) U Benzodiazepines Scrn Negative (NEGATIVE) Urine Cocaine Screen Negative (NEGATIVE) U Marijuana (THC) Screen Positive H (NEGATIVE) 02/04/20 02/04/20 Range/Units 15:18 15:18 WBC 14.6 H (5.0-10.0) 10^3/uL RBC 5.25 (4.6-6.2) 10^6/uL Hgb 17.5 (14.0-18.0) g/dL Hct 49.1 (40.0-54.0) % MCV 93.5 (80-100) fL MCH 33.3 (27.0-34.0) pg MCHC 35.6 H (33.0-35.0) g/dL Plt Count 346 (150-450) 10^3/uL Neut % (Auto) 79.4 H (42.2-75.2) % Lymph % (Auto) 15.9 L (20.5-50.1) % [place] % (Auto) 4.5 (2-8) % Eos % (Auto) 0.1 L (1.0-3.0) % Baso % (Auto) 0.1 (0.0-1.0) % Sodium 139 (136-145) mmol/L Potassium 4.5 (3.5-5.1) mmol/L Chloride 102 (98-107) mmol/L Carbon Dioxide 25 (21-32) mmol/L Anion Gap 16.5 H (7-13) mEq/L BUN 13 (7-18) mg/dL Creatinine 1.59 H (0.70-1.30) mg/dL Est Cr Clr Drug Dosing 59.15 mL/min Estimated GFR (MDRD) 48 BUN/Creatinine Ratio 8.2 (No establ ref range) Glucose 152 H (74-99) mg/dL Calcium 10.1 (8.5-10.1) mg/dL Total Bilirubin 1.1 H (0.2-1.0) mg/dL AST 15 (15-37) U/L ALT 26 (16-63) U/L Alkaline Phosphatase 79 (46-116) U/L Total Protein 8.9 H (6.4-8.2) g/dL Albumin 5.0 (3.4-5.0) g/dL Globulin 3.9 Albumin/Globulin Ratio 1.3 Amylase (25-115) U/L Lipase (73-393) U/L Urine Color (YELLOW) Urine Appearance (CLEAR) Urine pH (5.0-9.0) Ur Specific [place] (1.005-1.030) Urine Protein (NEGATIVE) Urine Glucose (UA) (NEGATIVE) Urine Ketones (NEGATIVE) Urine Occult Blood (NEGATIVE) Urine Nitrite (NEGATIVE) Urine Bilirubin (NEGATIVE) Urine Urobilinogen (0.2-1.0) mg/dL Ur Leukocyte Esterase (NEGATIVE) Urine RBC /HPF Urine WBC (0-5/HPF) /HPF Ur Epithelial Cells (NOT SEEN) /HPF Calcium Oxalate Crystal (NOT SEEN) /HPF Amorphous Sediment (NOT SEEN) /HPF Urine Bacteria (0-FEW/HPF) /HPF Urine Mucus (NOT SEEN) /LPF Urinalysis Comment Urine Opiates Screen (NEGATIVE) Ur Oxycodone Screen (NEGATIVE) Urine Methadone Screen (NEGATIVE) Ur Barbiturates Screen (NEGATIVE) U Tricyclic Antidepress (NEGATIVE) Ur Phencyclidine Scrn (NEGATIVE) Ur Amphetamine Screen (NEGATIVE) U Methamphetamines Scrn (NEGATIVE) Urine MDMA Screen (NEGATIVE) U Benzodiazepines Scrn (NEGATIVE) Urine Cocaine Screen (NEGATIVE) U Marijuana (THC) Screen (NEGATIVE) Meds: Medications Discontinued Medications Generic Name Dose Route Start Last Admin Trade Name Estela PRN Reason Stop Dose Admin Lactated Ringer's 1,000 mls @ 999 mls/hr 02/04/20 15:09 02/04/20 15:29 Ringers, Lactated IV 02/04/20 16:09 999 mls/hr .BOLUS ONE Administration Metoclopramide HCl 10 mg 02/04/20 15:09 02/04/20 15:29 Reglan IVPUSH 02/04/20 15:10 10 mg ONETIME ONE Administration Departure - Departure Time of Disposition: 16:42 Disposition: Home, Self-Care 01 Condition: Fair Clinical Impression: Gastroenteritis, Diverticulitis - Discharge Information *PRESCRIPTION DRUG MONITORING PROGRAM REVIEWED*: Not Applicable *COPY OF PRESCRIPTION DRUG MONITORING REPORT IN PATIENT JOBY: Not Applicable Instructions: Viral Gastroenteritis, Adult, [id number], Diverticulitis, Easy- to-Read Forms: ED Department Discharge Care Plan Goals: The patient was advised of the examination, lab and CT results during the visit. The patient was given IV fluids and IV Reglan while in the ED. The patient was discharged with scripts for 1) Reglan (10 mg) #20 to take 1 by mouth every 6 hours, 2) Cipro (500 mg) #20 to take 1 by mouth 2 times per day and 3) Metronidazole (500 mg) #30 to take 1 by mouth 3 times per day for 10 days. The patient should follow-up with his primary care facility for continued evaluation and further management. If the patient has any additional symptoms or concerns, the patient should either return to the emergency department or visit his primary care facility. Sepsis Event Note - Evaluation Sepsis Screening Result: No Definite Risk - Focused Exam Vital Signs: Vital Signs Temp Pulse Resp BP Pulse Ox 02/04/20 14:53 35.9 C L 74 16 120/82 100 Date Exam was Performed: 02/04/20 Time Exam was Performed: 16:41 - My Orders Last 24 Hours: My Active Orders 02/04/20 15:45 CULTURE BLOOD [BC] Stat LACTIC ACID [CHEM] Stat - Assessment/Plan Last 24 Hours: My Active Orders 02/04/20 15:45 CULTURE BLOOD [BC] Stat LACTIC ACID [CHEM] Stat
[2020-02-04 15:45] LABS: ANION GAP 16.5 mEq/L (7-13)
--- NOTE | 2020-02-04 16:38 | CT ---
EXAMINATION: Abdomen Pelvis wo Cont SEX: Male AGE: 39 years CLINICAL HISTORY: Male smoker with left upper quadrant abdominal pain and abnormally elevated WBC (14,600). "Negative" CT scan abdomen/pelvis 23 December 2016 for comparison. Scan technique: Volume acquisition of data from the abdomen and pelvis obtained on emergency basis without oral or IV contrast while patient was lying supine on the Siemens multislice scanner [place], [place]. All data archived in the PACS system for storage, reformatting axial/sagittal/coronal planes and study. Interpretation: 1. Diverticula scattered across the transverse colon and in the splenic flexure without associated signs of inflammation i.e. no pericolonic inflammatory "dirty" peritoneal fat, abnormal mucosal wall thickening, abscess or signs bowel obstruction. 2. Normal appendix RLQ. 3. No abdominal or pelvic mass lesion, signs of mechanical bowel obstruction, ascites or free intraperitoneal air. 4. Gallbladder, unenhanced liver, stomach, spleen, pancreas and adrenal glands unremarkable. 5. Unenhanced kidneys normal size and anatomic configuration. No cystic or solid renal cortical mass lesion, nephrolithiasis or signs of obstructive uropathy. Symmetric small volume urinary bladder unremarkable. Normal prostate and seminal vesicles. 6. Normal caliber aortoiliac vessels. Lumbar spine unremarkable (marginal spondylosis lower thoracic spine). 7. Lung bases clear. Normal cardiac silhouette. No pericardial effusion or dependent pleural effusion. 8. No ventral wall or inguinal hernias. CONCLUSION: Diverticulosis (mild) transverse colon. No current signs of inflammation.
== END 2020-02-04 16:53 | disposition home or self-care (01) ==
LOC: DL.ED 14:48
DX: K57.32 Diverticulitis of large intestine without perforation or abscess without bleeding (principal); K52.9 Noninfective gastroenteritis and colitis, unspecified; E66.9 Obesity, unspecified; Z68.28 Body mass index [BMI] 28.0-28.9, adult; I10 Essential (primary) hypertension; J45.909 Unspecified asthma, uncomplicated; K21.9 Gastro-esophageal reflux disease without esophagitis; Z79.899 Other long term (current) drug therapy; Z91.030 Bee allergy status
CPT/HCPCS: 36415; 74176; 80053; 80305; 81001; 82150; 82272; 83605; 83690; 85025; 87040; 96361; 96374; 99284; J2765; J7120

== ENCOUNTER 2023-01-31 19:29 | Emergency (ER) | payer SELFPAY ==
[2023-01-31] MEDS ORDERED: Tetracaine HCl/PF 0.5% 4 ML Bottle EYERT ONE (19:40)
[2023-01-31] MEDS ORDERED: Fluorescein 1 MG Ophth Strip EYERT ONE (19:40)
[2023-01-31] MEDS ORDERED: Tobramycin 0.3% Ophth Drops 5 ML Bottle EYERT ONE (20:02)
== END 2023-01-31 20:16 | disposition home or self-care (01) ==
LOC: DL.ED 19:29
DX: T15.91XA Foreign body on external eye, part unspecified, right eye, initial encounter (principal); H10.31 Unspecified acute conjunctivitis, right eye; I10 Essential (primary) hypertension; J45.909 Unspecified asthma, uncomplicated; K21.9 Gastro-esophageal reflux disease without esophagitis; E66.9 Obesity, unspecified; F17.210 Nicotine dependence, cigarettes, uncomplicated; Z79.899 Other long term (current) drug therapy; Z91.030 Bee allergy status; Z88.2 Allergy status to sulfonamides; Z79.51 Long term (current) use of inhaled steroids; Z68.31 Body mass index [BMI] 31.0-31.9, adult
CPT/HCPCS: 99283; A9270; J3490